=== PATIENT | female | born 1985 | race Caucasian/White ===

== ENCOUNTER 2024-11-24 16:04 | Emergency (ER) | payer MEDICAID ==
[~2024-11-24] VITALS: Ht 162.6 cm; Wt 86.0 kg
[2024-11-24 16:13] VITALS: TEMP 36.9; O2SAT 100
[2024-11-24 17:48] VITALS: BP 167/105; PULSE 98; RESP 18
[2024-11-24] MEDS: MORPHINE SULFATE 4 MG/ML INJ (FOR IV/IM USE) IV STA (17:48)
[2024-11-24 19:35] LABS: BASOPHILS % 0.7 % (0.0-2.0); EOSINOPHILS % 1.5 % (0.0-5.0); HEMATOCRIT. 41.6 % (36.0-48.0); HEMOGLOBIN. 13.7 g/dL (12.0-16.0); LYMPHOCYTES % 39.1 % (20.0-50.0); MEAN CORPUSCULAR HEMOGLOBIN 28.3 pg (28.0-32.0); MEAN CORPUSCULAR HGB CONC 32.9 g/dL (31.0-37.0); MEAN PLATELET VOLUME 7.4 fl (7.4-10.4); MONOCYTES % 6.8 % (2.0-8.0); NEUTROPHILS % 51.9 % (40.0-76.0); PLATELET 533 x1000/uL (130-400); RED BLOOD CELL COUNT 4.83 mill/uL (4.2-5.4); RED CELL DISTRIBUTION WIDTH 13.2 % (11.6-14.6); WHITE BLOOD COUNT 7.4 x1000/uL (4.5-11.0)
[2024-11-24 19:43] LABS: PROTHROMBIN TIME 10.3 sec (9.6-11.0)
[2024-11-24 19:46] LABS: CHLORIDE 103 mEq/L (98-107); SODIUM 138 mEq/L (136-145)
[2024-11-24 19:47] LABS: CARBON DIOXIDE 24 mEq/L (21-32)
[2024-11-24 19:48] LABS: CALCIUM 9.9 mg/dL (8.7-10.4)
[2024-11-24 19:52] LABS: CREATININE 0.7 mg/dL (0.6-1.0); GLUCOSE 111 mg/dL (70-105); UREA NITROGEN BLOOD 13 mg/dL (9-23)
[2024-11-24 19:53] LABS: TROPONIN I HIGH SENSITIVITY 4 ng/L (3.0-34)
[2024-11-24] MEDS ORDERED: CYCL10TA21 MT (20:57)
[2024-11-24] MEDS ORDERED: IBUP-2029 MT (20:57)
[2024-11-24 21:19] LABS: HCG SCREEN NEGATIVE
[2024-11-24] MEDS ORDERED: IOHEXOL-300 100 ML BOTTLE ONE (22:46)
== END 2024-11-24 21:25 | disposition home or self-care (01) ==
LOC: ER 16:04
DX: S09.90XA Unspecified injury of head, initial encounter (principal); I10 Essential (primary) hypertension; E11.9 Type 2 diabetes mellitus without complications; V89.2XXA Person injured in unspecified motor-vehicle accident, traffic, initial encounter; Y93.89 Activity, other specified; Y92.410 Unspecified street and highway as the place of occurrence of the external cause; Y99.8 Other external cause status
CPT/HCPCS: 80048; 84703; 85025; 85610; 86850; 86900; 86901; 84484; 36415; 73590; 70450; 71260; 72125; 74177; 93005; 96374; 99285; Q9967; J2270; Z7610 ×2